=== PATIENT | male | born 2005 | race Caucasian/White ===

== ENCOUNTER 2025-03-08 13:03 | Inpatient (IN) | payer OTHER ==
[~2025-03-08] VITALS: Ht 172.7 cm; Wt 59.2 kg
[2025-03-08] MEDS ORDERED: HOME MED LIST COMPLETE! XX SCH (13:45)
[2025-03-08 13:50] LABS: BASO # 0.0 10^3/uL (0.0-0.2); BASO % 0.7 % (0.0-1.0); EOS # 0.0 10^3/uL (0.0-0.5); EOS % 0.4 % (0.0-3.0); LYMPH # 1.8 10^3/uL (1.5-5.0); LYMPH % 32.7 % (24.0-44.0); MONO # 0.5 10^3/uL (0.0-0.8); MONO % 8.5 % (2.0-8.0); NEUTROPHILS # 3.1 10^3/uL (1.5-8.5); NEUTROPHILS % 57.5 % (36.0-66.0); PLATELET COUNT, AUTOMATED 156 10^3/uL (150-450)
[2025-03-08] MEDS: MORPHINE 4 MG/ML 1 ML VIAL IV PRN ×3 (14:00→21:27)
[2025-03-08] MEDS: ceFAZolin SODIUM 2 GM in DEXTROSE 5% (D5W) ADV/MINI-BAG 50 ML IV ONE (14:01)
[2025-03-08 14:02] LABS: INR 1.01
[2025-03-08 14:16] LABS: CALCIUM LEVEL 9.1 MG/DL (8.5-10.1); CARBON DIOXIDE LEVEL 26 MMOL/L (20-31); CHLORIDE LEVEL 105 MMOL/L (98-107); CREATININE FOR GFR 0.96 MG/DL (0.70-1.30); GLOMERULAR FILTRATION RATE > 90.0 (>60); POTASSIUM SERUM 3.9 MMOL/L (3.5-5.1); SODIUM LEVEL 140 MMOL/L (136-145)
[2025-03-08] MEDS ORDERED: MORPHINE 2 MG/ML 1 ML VIAL IV PRN (16:55)
[2025-03-08] MEDS: KETOROLAC 30 MG/ML 1 ML VIAL IV ONE (17:59)
[2025-03-08] MEDS: NS (Normal Saline) 0.9% 1,000 ML IV SCH (17:59)
[2025-03-08 18:51] LABS: PLATELET COUNT, AUTOMATED 156 10^3/uL (150-450)
[2025-03-08] MEDS ORDERED: MORPHINE 4 MG/ML 1 ML VIAL IV PRN (21:05)
[2025-03-08 21:21] VITALS: BP 123/68; TEMP 98.8; O2SAT 98
[2025-03-09] VITALS (7 sets, daily range): BP systolic 110–145; BP diastolic 56–82; TEMP 97.8–100.4; O2SAT 93–98
[2025-03-09] MEDS: ACETAMINOPHEN 325 MG TAB PO PRN (04:28)
[2025-03-09 05:57] LABS: PLATELET COUNT, AUTOMATED 137 10^3/uL (150-450)
[2025-03-09 06:48] LABS: ALT/SGPT 18 U/L (7.0-40); AST/SGOT 26 U/L (<34); CALCIUM LEVEL 7.9 MG/DL (8.5-10.1); CARBON DIOXIDE LEVEL 25 MMOL/L (20-31); CHLORIDE LEVEL 106 MMOL/L (98-107); CREATININE FOR GFR 0.95 MG/DL (0.70-1.30); GLOMERULAR FILTRATION RATE > 90.0 (>60); POTASSIUM SERUM 3.8 MMOL/L (3.5-5.1); SODIUM LEVEL 139 MMOL/L (136-145)
[2025-03-09] MEDS: cefTRIAXone SOD 1 GM in DEXTROSE 5% (D5W) ADV/MINI-BAG 50 ML IV SCH (08:18)
[2025-03-09] MEDS: PANTOPRAZOLE 40MG VIAL IV SCH (08:20)
[2025-03-09] MEDS ORDERED: LIDOCAINE 2% 100 MG/5 ML SDV (FOR ANES.) As Ordered ONE (17:50)
[2025-03-09] MEDS ORDERED: dexAMETHasone 4 MG/ML 1 ML VIAL As Ordered ONE (17:51)
[2025-03-09] MEDS ORDERED: ONDANSETRON 4MG 2ML VIAL As Ordered ONE (17:51)
[2025-03-09] MEDS ORDERED: MIDAZOLAM INJ 2 MG/2 ML VIAL As Ordered ONE (17:52)
[2025-03-09] MEDS ORDERED: dexmedeTOMIDine (4 MCG/ML) 200 MCG/50 ML BTL As Ordered ONE (19:02)
[2025-03-09] MEDS ORDERED: ACETAMINOPHEN 1000MG/100ML IV BAG As Ordered ONE (19:12)
[2025-03-09] MEDS ORDERED: KETOROLAC 30 MG/ML 1 ML VIAL As Ordered ONE (19:17)
[2025-03-09] MEDS ORDERED: ONDANSETRON 4MG 2ML VIAL IV PRN (20:40)
[2025-03-09] MEDS: LR 1,000 ML IV SCH (20:40)
[2025-03-09] MEDS ORDERED: HYDROMORPHONE HCL 0.5 MG/0.5 ML SYRINGE IV PRN (20:40)
[2025-03-10] VITALS (7 sets, daily range): BP systolic 108–140; BP diastolic 59–73; TEMP 98.2–98.8; O2SAT 96–99
[2025-03-10] MEDS: KETOROLAC 30 MG/ML 1 ML VIAL IV ONE (01:53)
[2025-03-10] MEDS: ceFAZolin SODIUM 2 GM in DEXTROSE 5% (D5W) ADV/MINI-BAG 50 ML IV SCH (03:53)
[2025-03-10 06:38] LABS: PLATELET COUNT, AUTOMATED 107 10^3/uL (150-450)
[2025-03-10 07:07] LABS: ALT/SGPT 15 U/L (7.0-40); AST/SGOT 23 U/L (<34); CALCIUM LEVEL 8.0 MG/DL (8.5-10.1); CARBON DIOXIDE LEVEL 26 MMOL/L (20-31); CHLORIDE LEVEL 106 MMOL/L (98-107); CREATININE FOR GFR 0.79 MG/DL (0.70-1.30); GLOMERULAR FILTRATION RATE > 90.0 (>60); POTASSIUM SERUM 4.6 MMOL/L (3.5-5.1); SODIUM LEVEL 138 MMOL/L (136-145)
[2025-03-10] MEDS ORDERED: IBUPROFEN 600 MG TAB PO PRN (08:10)
[2025-03-10] MEDS: ENOXAPARIN 40 MG/0.4 ML SYRINGE (J1650 PER 10MG) SC SCH (09:00)
[2025-03-10] MEDS: ACETAMINOPHEN 325 MG TAB PO SCH (09:33)
[2025-03-10] MEDS ORDERED: OXYC-517 PO (11:01)
[2025-03-10] MEDS ORDERED: ACET32TAB PO (11:01)
[2025-03-10] MEDS ORDERED: COLA100C5 PO (11:01)
[2025-03-10] MEDS ORDERED: cefTRIAXone SOD 1 GM in DEXTROSE 5% (D5W) ADV/MINI-BAG 50 ML IV SCH (19:00)
== END 2025-03-10 14:02 | disposition home or self-care (01) | DRG 512 ==
LOC: M ED 13:03 → EDBD 13:03 → M ED INP 16:51 → M MSPAV 20:59
PROVIDERS: ADMIT Internal Medicine; ATTEND Internal Medicine
PROC: 0PSH04Z Reposition Right Radius with Internal Fixation Device, Open Approach (ICD-10-PCS; principal; 2025-03-09 10:00)
DX: S52.571B Other intraarticular fracture of lower end of right radius, initial encounter for open fracture type I or II (principal); S52.611A Displaced fracture of right ulna styloid process, initial encounter for closed fracture; S82.402A Unspecified fracture of shaft of left fibula, initial encounter for closed fracture; R50.9 Fever, unspecified; V28.49XA Other motorcycle driver injured in noncollision transport accident in traffic accident, initial encounter; Y93.89 Activity, other specified; Y99.8 Other external cause status; Y92.410 Unspecified street and highway as the place of occurrence of the external cause